=== PATIENT | female | born 1980 | race Caucasian/White ===

== ENCOUNTER 2019-11-26 09:03 | Emergency (ER) | payer SELFPAY ==
[~2019-11-26] VITALS: Ht 162.6 cm; Wt 63.5 kg
[2019-11-26 09:20] VITALS: BP 115/70
--- NOTE | 2019-11-26 09:23 | NUR ---
ED Nurse Note:pt. reported to fall from the scooter week ago and had open skin on left and right arms, now she came with cellulitis on left shoulder and arm
[2019-11-26] MEDS ORDERED: Omnipaque-300 100ml vial INJ ONE (09:30)
--- NOTE | 2019-11-26 09:31 | Emergency Room Report ---
History of Present Illness General Chief Complaint: Skin Rash/Abscess Source: Patient Present Illness HPI Patient presents with complaints of initially possible sprain of her left shoulder Reports that she had an open wound in the left upper arm as well and started noticing discharge from there Reports that she has a friend who is a nurse who told her that this is likely an infection and she will need antibiotics After further discussion patient also reports that she woke up this morning with increased swelling and redness to the left upper shoulder area Patient denies any drug abuse denies any chest pain or shortness of breath Denies any vomiting or diarrhea denies any recent travel Allergies: Coded Allergies: No Known Allergies (Unverified , 11/26/19) Patient History Past Medical History: see triage record Last Menstrual Period: 10/29/19 Now: No Reviewed Nursing Documentation: PMH: Agreed; PSxH: Agreed Nursing Documentation-PMH Past Medical History: No Stated History Review of Systems All Other Systems: negative except mentioned in HPI Physical Exam Vital Signs Date Time Temp Pulse Resp B/P (MAP) Pulse Ox O2 Delivery O2 Flow Rate FiO2 11/26/19 09:05 97.5 71 17 115/70 (85) 98 Room Air Sp02 EP Interpretation: reviewed, normal General Appearance: no apparent distress Head: normocephalic, atraumatic Eyes: bilateral eye PERRL ENT: EOM grossly intact, normal pharynx Neck: other - Patient has a large fluctuant region left supraclavicular area erythematous involving the trapezius area Respiratory: lungs clear Cardiovascular #1: regular rate, rhythm, no gallop Gastrointestinal: non tender, soft Musculoskeletal: other - Several areas of skin excoriation left upper arm specific site at the proximal shoulder anteriorly with open wound and discharge noted Neurologic: alert, oriented x3 Skin: other - Audible abnormalities as noted above Lymphatic: other - Lesion left supraclavicular area, question lymph node involvement versus other Medical Decision Making Diagnostic Impression: Primary Impression: Abscess ER Course Patient has a significant size abscess involving the left trapezius area there is also abnormalities including the left upper arm Patient's presentation is concerning requiring extensive blood work and imaging to further evaluate the size and location of this condition At the time of initiation of the work-up patient presents up to the desk and states that she ' wants to get the Fxxx out of here' Patient was discussed the need for evaluation and my concern regarding the area She states that she wants to go somewhere that knows what they are doing and just wants to get antibiotics Patient is awake and alert has full decision-making capacity and leaving AGAINST MEDICAL ADVICE Understanding that leaving at this time can lead to worsening symptoms sepsis septic shock,, possible Last Vital Signs Date Time Temp Pulse Resp B/P (MAP) Pulse Ox O2 Delivery O2 Flow Rate FiO2 11/26/19 09:20 97.5 17 115/70 98 Room Air 11/26/19 09:05 71 Status: unchanged Disposition: AGAINST MEDICAL ADVICE Condition: Serious Artis Jermoe DO Nov 26, 2019 09:31
[2019-11-26 09:45] VITALS: BP 115/70
--- NOTE | 2019-11-26 09:45 | NUR ---
AMA: SEE AMA FORM. pt. refused blood draw and left ER ,A/Ox4 ambulatory with steady gait
== END 2019-11-26 10:30 | disposition left against medical advice (07) ==
LOC: EMR 09:46
DX: R21 Rash and other nonspecific skin eruption (principal)
CPT/HCPCS: 99281